=== PATIENT | male | born 1980 | race Caucasian/White ===

== ENCOUNTER 2021-03-05 12:01 | Emergency (ER) | payer OTHER, BC ==
[2021-03-05] MEDS ORDERED: Lidocaine 1% 30 ML SDV INJECT ONE (12:49)
--- NOTE | 2021-03-05 12:57 | EDM.PDOC ---
ED HPI GENERAL MEDICAL PROBLEM - General Stated Complaint: CUT LEFT HAND Time Seen by Provider: 03/05/21 12:35 Source of Information: Reports: Patient History Limitations: Reports: No Limitations - History of Present Illness INITIAL COMMENTS - FREE TEXT/NARRATIVE: Patient comes emergency department today with complaints of a laceration to the palm of his right hand. Just prior to arrival this patient was working on a tire when he was using the tire iron as a fulcrum to get the tire off the brake disc. He subsequently was pushing on the sharp edge of the tire iron and sustained a laceration on the palm of his right hand. His last tetanus immunization was about 3 years ago. He denies paresthesias to his right hand. No change in the functionality of his right hand. Right Hand Pain Score (Numeric/FACES): 8 - Related Data Allergies Allergy/AdvReac Type Severity Reaction Status Date / Time No Known Allergies Allergy Verified 03/05/21 18:03 Review of Systems - Review of Systems Review Of Systems: Comprehensive ROS is negative, except as noted in HPI. ED EXAM, GENERAL - Physical Exam Exam: See Below Exam Limited By: No Limitations General Appearance: Alert, WD/WN, No Apparent Distress Respiratory/Chest: No Respiratory Distress, Lungs Clear Cardiovascular: Normal Peripheral Pulses, Regular Rate, Rhythm Peripheral Pulses: 2+: Radial (L), Radial (R) Extremities: Other (CMS intact appropriately). No: Normal Inspection (On the palmar surface on the lateral aspect at the base of the thumb on the pad area there is a distal to proximal approximate 5 cm subcutaneous laceration in a linear fashion. He is able to flex and extend at all joints appropriately to the hand. ) Neurological: Alert, Oriented Skin Exam: Warm, Dry, Intact, Normal Color, No Rash ED TRAUMA EXTREMITY PROCEDURES - Laceration/Wound Repair Right Hand Lac/Wound Length In cm: 5 Appearance: Subcutaneous, Linear Distal NVT: Neuro & Vascular Intact, No Tendon Injury Anesthetic Type: Local Local Anesthesia - Lidocaine (Xylocaine): 1% Plain Skin Prep: Chlorhexidine (Hibiciens), Saline Saline Irrigation (cc's): 500 Exploration/Debridement/Repair: Wound Explored, In a Bloodless Field, Explored to Base, No Foreign Material Found Closed With: Sutures Suture Size: 4-0 Suture Type: Nylon Sterile Dressing Applied: Nurse Tetanus Status Addressed: Yes Course - Vital Signs Last Recorded V/S: Last Vital Signs Temp 98.9 F 03/05/21 13:00 Pulse 88 03/05/21 13:00 Resp 17 03/05/21 13:00 BP 130/76 03/05/21 13:00 Pulse Ox 98 03/05/21 13:00 - Orders/Labs/Meds Meds: Medications Discontinued Medications Generic Name Dose Route Start Last Admin Trade Name Lionel PRN Reason Stop Dose Admin Lidocaine HCl 30 ml 03/05/21 12:49 03/05/21 13:00 Lidocaine 1% 30 Ml Sdv INJECT 03/05/21 12:50 30 ml ONETIME ONE Administration Lidocaine HCl Confirm 03/05/21 13:07 03/05/21 18:04 Lidocaine 1% 30 Ml Sdv Administered 03/05/21 13:08 Not Given Dose 30 ml .ROUTE .STK-MED ONE Departure - Departure Time of Disposition: 13:34 Disposition: Home, Self-Care 01 Clinical Impression: Laceration of right palm Qualifiers: Encounter type: initial encounter Qualified Code(s): S61.411A - Laceration without foreign body of right hand, initial encounter - Discharge Information Instructions: Laceration Care, Adult, [id number] Referrals: PCP,Not In Area [Primary Care Provider] - Additional Instructions: Cleanse the wound twice daily with soap and water. Bacitracin and bandage until healed. Watch for signs of infection. Running water over the laceration is fine, no soaking in water. Sutures out in 10 days with your PCP. If a hard scab or crust does develop along the laceration site. Use 50% water and 50% Hydrogen Peroxide to remove the scab and then bacitracin and bandage. Return to the ED if new or worsening symptoms.
[2021-03-05] MEDS ORDERED: Lidocaine 1% 30 ML SDV ONE (13:07)
== END 2021-03-05 13:50 | disposition home or self-care (01) ==
LOC: VM.ED 12:01
DX: S61.411A Laceration without foreign body of right hand, initial encounter (principal); W26.8XXA Contact with other sharp object(s), not elsewhere classified, initial encounter
CPT/HCPCS: 12002; 99282-25; 99283